=== PATIENT | female | born 1970 | race Caucasian/White ===

== ENCOUNTER 2016-08-22 11:25 | Emergency (ER) | payer BC | END 2016-08-22 13:45 | disposition home or self-care (01) | LOC: ER 11:25 | DX: R20.2 Paresthesia of skin (principal); R11.0 Nausea; J45.909 Unspecified asthma, uncomplicated; F17.210 Nicotine dependence, cigarettes, uncomplicated; Z88.5 Allergy status to narcotic agent | CPT/HCPCS: 36415 ==